=== PATIENT | male | born 1990 | race American Indian/Alaskan Native ===

== ENCOUNTER 2018-04-02 20:10 | Emergency (ER) | payer OTHER ==
[2018-04-02 20:33] VITALS: BP 142/79
[2018-04-02] MEDS ORDERED: MOTRIN PO ONE (23:20)
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
== END 2018-04-03 01:01 | disposition home or self-care (01) ==
LOC: EDBD → ED 20:10
DX: S39.012A Strain of muscle, fascia and tendon of lower back, initial encounter (principal); S86.912A Strain of unspecified muscle(s) and tendon(s) at lower leg level, left leg, initial encounter; S86.911A Strain of unspecified muscle(s) and tendon(s) at lower leg level, right leg, initial encounter; V49.49XA Driver injured in collision with other motor vehicles in traffic accident, initial encounter; Y93.89 Activity, other specified; Y92.89 Other specified places as the place of occurrence of the external cause; Y99.8 Other external cause status
CPT/HCPCS: 72100; 99283